=== PATIENT | female | born 1955 | race Caucasian/White ===

== ENCOUNTER 2018-08-30 14:22 | Emergency (ER) | payer BC ==
[2018-08-30 15:12] VITALS: BP 160/99
--- NOTE | 2018-08-30 15:33 | UC ---
Lower Extremity/Ankle HPI - HPI Summary HPI Summary: Stepped wrong off a curb last night and hit foot. C/O bruising/swelling and pain. - History of Current Complaint Chief Complaint: UCLowerExtremity Stated Complaint: RIGHT FOOT INJURY Time Seen by Provider: 08/30/18 15:19 Hx Obtained From: Patient Onset/Duration: Sudden Onset, Lasting Days - 1, Still Present Severity Initially: Moderate Severity Currently: Moderate Pain Intensity: 4 Aggravating Factor(s): Standing, Ambulation Alleviating Factor(s): Rest, Elevation, Ice Able to Bear Weight: Yes - Risk Factors Gout Risk Factors: Hypertension DVT Risk Factors: Recent Travel - Allergies/Home Medications Allergies/Adverse Reactions: Allergies Allergy/AdvReac Type Severity Reaction Status Date / Time naproxen [From Naprosyn] Allergy Difficulty Verified 08/30/18 15:13 Breathing IV contrast dye Allergy Rash And Uncoded 08/30/18 15:13 Itching Home Medications: Home Medications Ibuprofen TAB* [Motrin TAB* 800 MG] 800 mg PO Q6H PRN 08/30/18 [History Confirmed 08/30/18] Metoprolol Succinate XL TAB* [Toprol XL TAB*] 50 mg PO DAILY 08/30/18 [History Confirmed 08/30/18] Omeprazole CAP(NF) [PriLOSEC CAP(NF)] 10 mg PO DAILY 08/30/18 [History Confirmed 08/30/18] Ramipril CAP* [Altace CAP*] 10 mg PO DAILY 08/30/18 [History Confirmed 08/30/18] Simvastatin [Zocor] 40 mg PO QPM 08/30/18 [History Confirmed 08/30/18] PMH/Surg Hx/FS Hx/Imm Hx Cardiovascular History: Hypertension GI/ History: Gastroesophageal Reflux - with Knox's esophagus - Surgical History Surgical History: Yes Surgery Procedure, Year, and Place: R and L carpel tunnel. L4,L5 microlobotomy - Family History Known Family History: Positive: Hypertension - Social History Occupation: Employed Part-time Lives: With Family Alcohol Use: Daily Alcohol Amount: 2 glasses/day Substance Use Type: None Smoking Status (MU): Former Smoker Type: Cigarettes Amount Used/How Often: 1 ppd Length of Time of Smoking/Using Tobacco: 40 yrs When Did the Patient Quit Smoking/Using Tobacco: 2011 Review of Systems All Other Systems Reviewed And Are Negative: Yes Skin: Positive: Bruising Musculoskeletal: Positive: Arthralgia - right foot Is Patient Immunocompromised?: No Physical Exam Triage Information Reviewed: Yes Appearance: Well-Appearing, No Pain Distress, Well-Nourished Vital Signs: Initial Vital Signs Temp 98.5 F 08/30/18 15:02 Pulse 84 08/30/18 15:02 Resp 16 08/30/18 15:02 BP 160/99 08/30/18 15:02 Pulse Ox 99 08/30/18 15:02 Vital Signs Reviewed: Yes Eyes: Positive: Conjunctiva Clear Neck exam: Normal Respiratory Exam: Normal Cardiovascular Exam: Normal Musculoskeletal: Positive: Strength Limited @ - right foot flexion and extension , due to pain., ROM Limited @ - right foot Skin: Positive: Other - bruising over right distal lateral dorsal foot Images Feet (Multiple View): 1 - swelling/ bruising with tenderness over the distal 4th metatarsal. Lower Extremity Course/Dx - Differential Dx/Diagnosis Differential Diagnosis/HQI/PQRI: Contusion, Fracture (Closed), Sprain, Strain Provider Diagnosis: Contusion of right foot, Nondisplaced fracture of second metatarsal bone, right foot, initial encounter for closed fracture Discharge - Sign-Out/Discharge Documenting (check all that apply): Patient Departure All imaging exams completed and their final reports reviewed: Yes - Discharge Plan Condition: Stable Disposition: HOME Patient Education Materials: Foot Contusion (ED), Foot Fracture in Adults (ED) Referrals: Radha Apodaca NP [Primary Care Provider] - Tadeo Santoro MD [Medical Doctor] - 1 Day (Follow up ) - Billing Disposition and Condition Condition: STABLE Disposition: Home
== END 2018-08-30 16:34 | disposition home or self-care (01) ==
LOC: UCCORT 14:22
DX: S90.31XA Contusion of right foot, initial encounter (principal); S92.324A Nondisplaced fracture of second metatarsal bone, right foot, initial encounter for closed fracture; I10 Essential (primary) hypertension; K21.9 Gastro-esophageal reflux disease without esophagitis; Z87.891 Personal history of nicotine dependence; Z88.8 Allergy status to other drugs, medicaments and biological substances; Z91.041 Radiographic dye allergy status; X58.XXXA Exposure to other specified factors, initial encounter; Y92.9 Unspecified place or not applicable
CPT/HCPCS: 99212; G0463